=== PATIENT | female | born 1935 | race Caucasian/White ===

== ENCOUNTER 2017-05-15 09:24 | Inpatient (IN) | payer MEDICARE, OTHER ==
[~2017-05-15] VITALS: Ht 157.5 cm; Wt 107.0 kg
[~2017-05-15 09:24] MED LIST: ACETAMINOPHEN-1 EAC1 PO; ALLOPURINOL 10100 M1 PO; ASPIR 8181 M1 PO; BACTRIM DS TAB1 EACH PO; CARVEDILOL12.5 MG PO; COLCHICINE 0.60.6 M1 OR; COREG3.125 MG PO; IBUPROFEN; IBUPROFEN 200200 M1 PO; MEDROLDOSEPACK PO; MINIPRIN81 MG OR; MINOCIN100 MG PO; NORVASC10 MG OR; NORVASC5 MG PO; PHENAZOPYRIDIN200 M2 PO; PREDNISONE 20 M20 M1 PO; PROTONIX40 M1 PO; RYTHMOL 150MG150 M1 OR; TOPROL XL25 MG PO; XARELTO15 MG PO
[2017-05-15 09:45] VITALS: BP 178/105
[2017-05-15 09:48] LABS: URINE BILIRUBIN NEGATIVE (Negative); URINE BLOOD 3+ (Negative); URINE CLARITY SL CLOUDY; URINE COLOR STRAW; URINE GLUCOSE-RANDOM NEGATIVE (Negative); URINE KETONES NEGATIVE (Negative); URINE LEUKOCYTES-REFLEX 1+ (Negative); URINE NITRITE-REFLEX NEGATIVE (Negative); URINE PROTEIN 3+ (Negative); URINE SPECIFIC GRAVITY 1.025 (1.005-1.030); URINE UROBILINOGEN 0.2 E.U./dl (0.2-1.0)
[2017-05-15 09:54] LABS: BACTERIA-REFLEX 1-9 Few /HPF (None Seen); CASTS None Seen /LPF (None Seen); CRYSTALS None Seen /LPF (None Seen); MUCUS 0-3 Light strn/LPF (None Seen); SQUAMOUS 0-3 Few /LPF (0-3); URINE RBC >20 Many /HPF (0-2); URINE WBC-REFLEX 6-15 Few /HPF (0-5)
[2017-05-15 10:10] LABS: ABSOLUTE BASOPHILS 0.1 thou/uL (0.0-0.2); ABSOLUTE EOSINOPHILS 0.2 thou/uL (0.0-0.7); ABSOLUTE LYMPHOCYTES 1.1 thou/uL (0.8-5.3); ABSOLUTE MONOCYTES 0.8 thou/uL (0.0-1.2); ABSOLUTE NEUTROPHILS 6.4 thou/uL (1.6-8.1); BASOPHILS 0.8 %; HEMATOCRIT 40.5 % (37.0-47.0); HEMOGLOBIN 13.1 gm/dL (12.0-15.0); LYMPHOCYTES 12.8 %; MCH 29.3 pg (26.0-34.0); MCHC 32.4 g/dL (28.0-37.0); MCV 90.4 fL (80.0-100.0); MONOCYTES 9.8 %; MPV 7.9 fl. (7.2-11.1); NUCLEATED RBCS 0 /100WBC; PLATELET COUNT* 209 thou/uL (150-400); POLYS 74.6 %; RBC 4.47 mil/uL (4.20-5.00); RDW-CV 15.6 % (10.5-14.5); WBC 8.5 thou/uL (4.0-11.0)
[2017-05-15 10:19] LABS: APTT 27.3 Seconds (25.0-31.3); INR 1.1; PROTIME 10.7 Seconds (9.20-11.50)
[2017-05-15 10:23] LABS: ANION GAP 9 mmol/L (7-16); BUN 28 mg/dL (7-18); CALCIUM 8.3 mg/dL (8.5-10.1); CHLORIDE 108 mmol/L (98-107); CO2 23 mmol/L (21-32); CREATININE 1.4 mg/dL (0.6-1.3); GLUCOSE 124 mg/dL (70-99); POTASSIUM 4.9 mmol/L (3.5-5.1); SODIUM 140 mmol/L (136-145)
[2017-05-15 10:34] LABS: ALBUMIN 3.2 g/dL (3.4-5.0); ALKALINE PHOSPHATASE 144 U/L (46-116); NT-PRO BRAIN NAT PEPTIDE 4256 pg/mL (<300); SGOT 23 U/L (15-37); SGPT 17 U/L (30-65); TOTAL BILIRUBIN 0.6 mg/dL (<0.1-1.0); TOTAL PROTEIN 6.7 g/dL (6.4-8.2); TROPONIN-I LEVEL <0.06 ng/mL (<0.06)
[2017-05-15 11:37] VITALS: BP 161/82
[2017-05-15 11:50] VITALS: BP 156/90
[2017-05-15 16:00] VITALS: BP 162/89
--- NOTE | 2017-05-15 17:04 | EKG ---
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 BENTLEY : 1935 Requested By: Sunil Larios Order Number: [id number] MD: Benny Clemens Measurements Intervals [place] Rate: 89 P: [place]: QRS: 44 QRSD: 111 T: 54 QT: 378 QTc: 460 Interpretive Statements Atrial fibrillation Anteroseptal infarct, age indeterminate, possible Compared to ECG 03/01/2016 20:39:59 No significant changes Electronically Signed On 05-15-2017 17:03:51 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
--- NOTE | 2017-05-15 18:10 | NUR ---
PATIENT ADM ON UNIT TODAY, ARRIVED AT 1150. COLLIN REPORT FROM MERLYN IN ER, AGREE WITH ASSESSMENT. PATIENT IS A&OX4, ROOM AIR, IV LEFT HAND FLUIDS RUNNING. UP WITH ASSISTX1 WITH WALKER, WEAK AND UNSTEADY GIAT. NO C/O PAIN AT THIS TIME. REPORT BURNING AND PAINFUL URINATION. BLADDER SCANNED HER, 126 ML NOTED. NO OTHER CONCERNS AT THIS TIME. APPROPRIATE AND COOPORATIVE WITH CARE.
[2017-05-15 23:36] VITALS: BP 108/53
[2017-05-16 04:00] LABS: ABSOLUTE EOSINOPHILS 0.2 thou/uL (0.0-0.7); ABSOLUTE LYMPHOCYTES 1.4 thou/uL (0.8-5.3); ABSOLUTE MONOCYTES 0.7 thou/uL (0.0-1.2); ABSOLUTE NEUTROPHILS 3.7 thou/uL (1.6-8.1); BASOPHILS 0.5 %; EOSINOPHILS 3.5 %; HEMATOCRIT 33.9 % (37.0-47.0); LYMPHOCYTES 23.1 %; MCH 29.7 pg (26.0-34.0); MCHC 32.6 g/dL (28.0-37.0); MONOCYTES 11.9 %; NUCLEATED RBCS 0 /100WBC; PLATELET COUNT* 182 thou/uL (150-400); RBC 3.73 mil/uL (4.20-5.00); WBC 6.1 thou/uL (4.0-11.0)
[2017-05-16 04:03] LABS: CALCIUM 7.6 mg/dL (8.5-10.1); CREATININE 1.4 mg/dL (0.6-1.3); HEMOGLOBIN 11.1 gm/dL (12.0-15.0); MAGNESIUM 2.2 mg/dL (1.8-2.4); POTASSIUM 4.1 mmol/L (3.5-5.1)
--- NOTE | 2017-05-16 06:44 | NUR ---
PATIENT SLEPT WELL DURING THIS SHIFT. PT USES CALL LIGHT APPROPRIATELY FOR ASSISTANCE TO BSC. PT ABLE TO PIVOT TO BSC WITH STANDBY. PT WITH EDEMA IN LOWER EXTREMITIES. PT WITH FLUIDS INFUSING PER DR ORDER. PT ON ROOM AIR. PT REFUSING PAIN/NAUSEA ON THIS SHIFT. FREQUENTLY USED ITEMS AND CALL LIGHT WITHIN REACH. SIDERAILS UPX2 AND BED ALARM ON. WILL CONTINUE TO MONITOR.
[2017-05-16 07:40] VITALS: BP 127/65
--- NOTE | 2017-05-16 11:33 | NUR ---
Nutrition: Consult received for "other." Pt has a BMI of 43.2. Usual wt is ~230#. She stated she tries to lose wt, but it is difficult. She wants to get down to 200#. She stated she is "pre-diabetic." We discussed how wt loss can help improve blood sugar. Pt understands. Handouts provided to her on plate method, wt loss tips, meal prep. All questions answered. Good appetite on Regular diet. Low to mild nutrition risk at this time.
[2017-05-16 16:23] VITALS: BP 151/79
[2017-05-16 19:35] VITALS: BP 146/82
--- NOTE | 2017-05-17 05:43 | NUR ---
ASSESSMENT COMPLETE. PT SLEPT MOST OF THE NIGHT WITHOUT ANY CONCERNS. PT UP TO BSC COMMODE MULTIPLE TIME. PT IS X1 ASSIST. PT DENIES NEED FOR PAIN MEDS. PT DENIES N/V. PT HAS [place] SATS ON ROOM AIR. PT HAS SOME STRESS INCONTINENCE, BRIEF IN PLACE. PT HAS IV FLUIDS INFUSING IN LEFT HAND. PT TURNS SELF IN BED. SEE ASSESSMENT AND VITALS FOR OTHER DETAILS. BED ALARM ON, CALL LIGHT WITHIN REACH. WILL CONTINUE TO MONITOR
[2017-05-17 10:28] VITALS: BP 172/94
[2017-05-17] MEDS ORDERED: AUGMENTIN 875-1 EACH PO (10:40)
[2017-05-17 10:44] VITALS: BP 172/94
--- NOTE | 2017-05-17 14:49 | NUR ---
SW met with pt to complete initial assessment and introduce self and SW role. Pt going home today and expressed no dc needs. Pt lives at home with her son and granddaughter who are supportive. Pt denies and HH needs and feels comfortable and confident with dc home today. Pt has a RW, wc, shower seat and hx of [facility], [facility].
--- NOTE | 2017-05-17 15:13 | NUR ---
PATIENT IS ALERT AND ORIENTED TODAY, VERY PLEASANT. NO COMPLAINTS OF PAIN TODAY. IV ANTIBIOTICS GIVEN. PATIENT HAS SOME STRESS INCONTINENCE. UP WITH WALKER TO RESTROOM. DISCHARGE INSTRUCTIONS GIVEN, PRESCRIPTION GIVEN, APPOINTMENT GIVEN FOR UROLOGY AND QUESTIONS ANSWERED FOR PATIENT AND FAMILY. PATIENT LEFT VIA WHEELCHAIR TO HOME.
[2017-05-17 15:21] VITALS: BP 172/94
== END 2017-05-17 15:10 | disposition home or self-care (01) | DRG 683 ==
LOC: M.ERS 09:24 → M.3W 10:40 → M.TBA-ER 10:40 → M.3W 12:01
PROVIDERS: Family Medicine; ADMIT Internal Medicine
DX: N17.9 Acute kidney failure, unspecified (principal); R65.10 Systemic inflammatory response syndrome (SIRS) of non-infectious origin without acute organ dysfunction; N30.90 Cystitis, unspecified without hematuria; I10 Essential (primary) hypertension; E78.00 Pure hypercholesterolemia, unspecified; Z96.642 Presence of left artificial hip joint; Z96.653 Presence of artificial knee joint, bilateral; N81.10 Cystocele, unspecified; M10.9 Gout, unspecified; Z79.899 Other long term (current) drug therapy; Z86.73 Personal history of transient ischemic attack (TIA), and cerebral infarction without residual deficits; Z90.49 Acquired absence of other specified parts of digestive tract; Z90.710 Acquired absence of both cervix and uterus; Z88.8 Allergy status to other drugs, medicaments and biological substances; Z23 Encounter for immunization

== ENCOUNTER 2018-01-03 16:20 | Inpatient (IN) | payer MEDICARE, OTHER ==
[~2018-01-03] VITALS: Ht 172.7 cm; Wt 106.0 kg
[~2018-01-03 16:20] MED LIST changes: +AUGMENTIN 875-1 EACH PO
[2018-01-03 16:23] VITALS: BP 183/96
[2018-01-03] MEDS ORDERED: CRANBERRY200 MG PO (16:25)
[2018-01-03 17:28] LABS: BE -0.4 mmol/L (-2 to +3); HCO3 24.5 mmol/L (22.0-26.0); PCO2 41.3 mmHg (35.0-45.0); PO2 84.5 mmHg (75.0-100.0); pH 7.391 (7.340-7.450)
[2018-01-03 17:31] LABS: ABSOLUTE BASOPHILS 0.1 thou/uL (0.0-0.2); ABSOLUTE EOSINOPHILS 0.2 thou/uL (0.0-0.7); ABSOLUTE LYMPHOCYTES 1.4 thou/uL (0.8-5.3); ABSOLUTE MONOCYTES 0.5 thou/uL (0.0-1.2); ABSOLUTE NEUTROPHILS 3.7 thou/uL (1.6-8.1); EOSINOPHILS 3.5 %; LYMPHOCYTES 23.5 %; MCH 29.2 pg (26.0-34.0); MCHC 32.5 g/dL (28.0-37.0); MCV 89.7 fL (80.0-100.0); MONOCYTES 8.7 %; MPV 8.8 fl. (7.2-11.1); NUCLEATED RBCS 0 /100WBC; PLATELET COUNT* 193 thou/uL (150-400); POLYS 63.3 %; RBC 4.46 mil/uL (4.20-5.00); RDW-CV 15.5 % (10.5-14.5); WBC 5.9 thou/uL (4.0-11.0)
[2018-01-03 17:37] LABS: ANION GAP 7 mmol/L (7-16); BUN 20 mg/dL (7-18); CALCIUM 7.8 mg/dL (8.5-10.1); CHLORIDE 106 mmol/L (98-107); CO2 26 mmol/L (21-32); CREATININE 1.5 mg/dL (0.6-1.3); GLUCOSE 126 mg/dL (70-99); POTASSIUM 4.3 mmol/L (3.5-5.1); SODIUM 139 mmol/L (136-145)
[2018-01-03 17:42] LABS: ALBUMIN 3.2 g/dL (3.4-5.0); ALKALINE PHOSPHATASE 150 U/L (46-116); SGOT 21 U/L (15-37); SGPT 21 U/L (30-65); TOTAL BILIRUBIN 0.5 mg/dL (<0.1-1.0); TOTAL PROTEIN 7.5 g/dL (6.4-8.2); TROPONIN-I LEVEL <0.06 ng/mL (<0.06)
[2018-01-03 17:56] LABS: URINE BILIRUBIN NEGATIVE (Negative); URINE BLOOD 1+ (Negative); URINE CLARITY CLEAR; URINE COLOR YELLOW; URINE GLUCOSE-RANDOM NEGATIVE (Negative); URINE KETONES NEGATIVE (Negative); URINE NITRITE-REFLEX NEGATIVE (Negative); URINE PROTEIN NEGATIVE (Negative); URINE UROBILINOGEN 0.2 E.U./dl (0.2-1.0)
[2018-01-03 17:58] LABS: URINE LEUKOCYTES-REFLEX 3+ (Negative)
[2018-01-03 18:08] LABS: MUCUS None Seen strn/LPF (None Seen); SQUAMOUS >10 Many /LPF (0-3)
[2018-01-03 18:09] LABS: BACTERIA-REFLEX 1-9 Few /HPF (None Seen); CASTS None Seen /LPF (None Seen); URINE WBC-REFLEX >25 Many /HPF (0-5)
[2018-01-03 18:10] LABS: CRYSTALS None Seen /LPF (None Seen); URINE RBC 0-2 Rare /HPF (0-2); WBC CLUMPS Few (None Seen)
--- NOTE | 2018-01-03 18:25 | NUR ---
BACK FROM CT AT THIS TIME
[2018-01-03 20:25] VITALS: BP 191/97
[2018-01-03 20:54] VITALS: BP 186/90
[2018-01-04] VITALS: BP 135/66
--- NOTE | 2018-01-04 03:03 | NUR ---
ASSUMED CARE OF PT AT 2030 FROM THE ER. PT IS ALERT AND ORIENTED. VSS. PERRLA. NO COMPLAINTS OF PAIN. PT IS IN A FIB ON THE TELEMETRY. PT IS RESTING COMFORTABLY IN BED. RESPIRATIONS ARE EVEN AND NONLABORED. WILL CONTINUE TO MONITOR PT.
[2018-01-04 04:00] VITALS: BP 144/70
[2018-01-04 08:31] VITALS: BP 171/92
--- NOTE | 2018-01-04 10:45 | EKG ---
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 : 1935 Requested By: Kyra Harmon Order Number: [id number] MD: Sylvester Sim Measurements Intervals [place] Rate: 60 P: 0 UT: 141 QRS: 52 QRSD: 105 T: 82 QT: 438 QTc: 438 Interpretive Statements atrial fibrillation Anteroseptal infarct, age indeterminate Baseline wander in lead(s) III Compared to ECG 05/15/2017 09:54:17 rate slowed Electronically Signed On 01-04-2018 10:44:47 CDT by Sylvester Sim [email or web address] <ELECTRONICALLY SIGNED> By: Sylvester Sim MD, [facility] 01/04/18 1044 1745 1745 Sylvester Sim MD, [facility] /EPI
[2018-01-04 12:02] VITALS: BP 184/77
--- NOTE | 2018-01-04 12:33 | NUR ---
MET WITH PT TO DISCUSS HOME SITUATION/DC PLANNING. PT LIVES WITH HER SON WHO IS DISABLED AND HER ADULT GRANDDTR. GRANDDTR ASSISTS WITH HOUSEHOLD DUTIES AND TRANSPORTATION. PT IS INDEPENDENT WITH HER ADLS, IS ABLE TO COOK AND CLEAN SOME. USES WALKER, W/C AND BATH BENCH. SHE HAS HAD HH WITH [facility] IN PAST. SHE DOESN'T THINK SHE NEEDS HH AGAIN. CM TO FOLLOW
[2018-01-04 16:07] VITALS: BP 152/72
--- NOTE | 2018-01-04 17:56 | NUR ---
PT CARE ASSUMED AFTER REPORT. ASSESSMENT COMPLETE. AFIB/AFLUTTER ON MONITOR. DENIES PAIN. PT UP TO URINATE FREQUENTLY. INCONT AT TIMES WITH URGENCY. NIH Q4H. SCORES 0. FALL PRECAUTIONS IN PLACE INCLUDING BED ALARM. PROGRESSING TOWARDS GOALS.
[2018-01-04 19:30] VITALS: BP 170/90
--- NOTE | 2018-01-05 00:08 | NUR ---
ASSUMED CARE OF PT AT 1900. PT IS ALERT AND ORIENTED. VSS. PERRLA. NO COMPLAINTS OF PAIN. NIH IS 0. PT IS IN A FIB ON THE TELEMETRY. PT IS RESTING COMFORTABLY IN BED. RESPIRATIONS ARE EVEN AND NONLABORED. WILL CONTINUE TO MONITOR PT.
[2018-01-05 04:00] VITALS: BP 146/82
[2018-01-05 05:40] LABS: HEMATOCRIT 38.4 % (37.0-47.0); HEMOGLOBIN 12.4 gm/dL (12.0-15.0); MCH 28.9 pg (26.0-34.0); MCHC 32.3 g/dL (28.0-37.0); MCV 89.5 fL (80.0-100.0); MPV 8.5 fl. (7.2-11.1); RBC 4.29 mil/uL (4.20-5.00); RDW-CV 15.6 % (10.5-14.5); WBC 6.5 thou/uL (4.0-11.0)
[2018-01-05 05:46] LABS: CALCIUM 8.5 mg/dL (8.5-10.1); CREATININE 1.5 mg/dL (0.6-1.3); MAGNESIUM 2.1 mg/dL (1.8-2.4); POTASSIUM 4.1 mmol/L (3.5-5.1)
[2018-01-05 08:00] VITALS: BP 163/88
--- NOTE | 2018-01-05 09:00 | NUR ---
VSS, ASSUMED CARE IN THE AM,ASSESSMENT PERFORMED AND CHARTED, FALL PRECAUTIONS IN PLACE AND CALL LIGHT IN REACH, PT IS A&O4 AND UP WITH ONE AND WALKER, PT IS ON RA AND IS MED-SURG STATUS, PT DENIES ANY PAIN AND HE GOAL IS TO SIT UP IN CHAIR AND IMPROVE BREATHING, WILL FOLLOW WITH PLAN OF CARE,
[2018-01-05 17:30] VITALS: BP 157/85
--- NOTE | 2018-01-05 18:27 | NUR ---
ASSUMED CARE OF PATIENT AT 1730. REPORT RECEIVED FROM TASIA. PATIENT DENIES ANY PAIN. PATIENT IS RESTING IN BED. PATIENT DENIES ANY NEEDS AT THIS TIME. CALL LIGHT WITHIN REACH. WILL CONTINUE TO MONITOR.
[2018-01-06] VITALS: BP 131/90
--- NOTE | 2018-01-06 07:44 | NUR ---
PATIENT SLEPT MOST OF THE NIGHT. IV REMAINS SALINE LOCKED. PATIENT HAD NO COMPLAINTS OF PAIN. WILL CONTINUE TO MONITOR.
[2018-01-06 07:55] VITALS: BP 152/79
--- NOTE | 2018-01-06 16:59 | NUR ---
PATIENT A&OX4, ROOM AIR, IV RIGHT FOREARM SALINE LOCK. UP WITH ASSISTX1 WITH WALKER AND GIATBELT. NO C/O PAIN/N/V. PROLAPSED CERVIX NOTED, PATIENT STATES SHE HAS AN OUTPATIENT APT SCHEDULED. STRESS INCONTNENCE, ABLE TO CALL OUT APPROPRIATELY. NO OTHER CONCERNS AT THIS TIME. APPROPRIATE AND COOPORATIVE WITH CARE.
[2018-01-06 17:45] VITALS: BP 151/61
[2018-01-06 20:00] VITALS: BP 174/77
--- NOTE | 2018-01-07 05:56 | NUR ---
ASSUMED PT CARE AT 1930. PT ALERT AND ORIENTED X4, POLITE AND COOPERATIVE WITH CARES. PT WEARS BRIEFS FOR STRESS INCONTINENCE. SL TO RIGHT FOREARM. UP WITH ONE, GAIT BELT AND WALKER. FALL PRECAUTIONS IN PLACE. LOOSE/LIQUID STOOL X5 THIS SHIFT. NO C/O PAIN. USES CALL LIGHT APPROPRIATELY. CALL LIGHT AND FREQUENTLY USED ITEMS WITHIN REACH. HOURLY ROUNDING IN PROGRESS, WILL CONTINUE TO MONITOR.
[2018-01-07 08:00] VITALS: BP 158/88
[2018-01-07 09:06] VITALS: BP 158/88
[2018-01-07] MEDS ORDERED: LEVAQUIN 500 M500 M1 PO (10:04)
[2018-01-07] MEDS ORDERED: LISINOPRIL20 MG PO (10:04)
--- NOTE | 2018-01-07 10:44 | NUR ---
AM ASSESSMENT AND VITAL SIGNS COMPLETED DOCUMENTED. PT STATES SHE IS FEELING BETTER BUT STILL HAS GENERALIZED ACHES AND PAINS FROM ARTHRITIS. PT DECLINES PAIN MEDICATION AT THIS TIME. DISCHARGE ORDERS HAVE BEEN REC'D AND PT WILL BE GOING TO A SNF LATER TODAY.
--- NOTE | 2018-01-07 11:33 | NUR ---
CM SPOKE TO THE PATIENT TO DISCUSS DISCHARGE PLANNING NEEDS AND SKILLED AT D/C. PATIENT REQUEST SKILLED AT [facility]. SATYA SPOKE TO BERONICA WITH [facility] ADMISSSIONS TO INFORM OF THE REFERRAL FOR SKILLED AND FAXED PATIENTS CLINICAL INFO. BERONICA INFORMS THAT MEGHAN WILL COME TO THE HOSPITAL TO DO AN ON-SITE ASSESSMENT. CM WILL REMAIN AVAILABLE TO ASSIST AND FOLLOW NEEDED.
--- NOTE | 2018-01-07 13:03 | NUR ---
REPORT CALL[facility] TO [facility]. PT WILL BE PICKED UP AT 1400.
--- NOTE | 2018-01-07 15:09 | NUR ---
PT'S FAMILY HERE, TRANSPORTATION FROM [facility] HAS BEEN DELAYED SO FAMILY HAS DECIDED TO TAKE HER IN THEIR CAR. PT AND BELONGINGS ACCOMPANIED TO THE EXIT, DISCHARGED IN STABLE CONDITION.
[2018-01-08] MEDS ORDERED: DULCOLAX10 MG RECTAL (04:44)
[2018-01-08] MEDS ORDERED: MILK OF MA400 MG/5 M PO (04:45)
[2018-01-08] MEDS ORDERED: TYLENOL325 MG PO (04:46)
--- NOTE | 2018-01-08 11:09 | EKG ---
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: [place] : 1935 Requested By: Drea Bean Order Number: [id number] MD: Joel Shaffer Measurements Intervals [place] Rate: 98 P: [place]: QRS: 82 QRSD: 100 T: 144 QT: 451 QTc: 577 Interpretive Statements Atrial fibrillation Anteroseptal infarct, age indeterminate Prolonged QT interval Baseline wander in lead(s) II,aVR Compared to ECG 01/03/2018 17:45:48 Prolonged QT interval now present Myocardial infarct finding still present Electronically Signed On 01-08-2018 11:09:30 CDT by Joel Shaffer [email or web address] <ELECTRONICALLY SIGNED> By: Joel Shaffer MD, FACC 01/08/18 1109 0446 0446 Joel Shaffer MD, [facility] /EPI
== END 2018-01-07 15:13 | DRG 177 ==
LOC: M.ERS 16:20 → M.2W 18:51 → M.TBA-ER 18:51 → M.2W 19:46 → M.3W 01-05 17:50
PROVIDERS: Personal Emergency Response Attendant; ADMIT Internal Medicine
DX: J15.6 Pneumonia due to other Gram-negative bacteria (principal); G92 Toxic encephalopathy; N39.0 Urinary tract infection, site not specified; E78.00 Pure hypercholesterolemia, unspecified; Z96.653 Presence of artificial knee joint, bilateral; N18.3 Chronic kidney disease, stage 3 (moderate); I12.9 Hypertensive chronic kidney disease with stage 1 through stage 4 chronic kidney disease, or unspecified chronic kidney disease; M19.90 Unspecified osteoarthritis, unspecified site; Z96.643 Presence of artificial hip joint, bilateral; M10.9 Gout, unspecified; Z86.73 Personal history of transient ischemic attack (TIA), and cerebral infarction without residual deficits; Z90.49 Acquired absence of other specified parts of digestive tract; Z90.710 Acquired absence of both cervix and uterus; Z79.899 Other long term (current) drug therapy; Z88.8 Allergy status to other drugs, medicaments and biological substances

== ENCOUNTER 2018-01-08 04:40 | Emergency (ER) | payer MEDICARE, OTHER ==
[~2018-01-08] VITALS: Ht 172.7 cm; Wt 107.5 kg
[~2018-01-08 04:40] MED LIST changes: +CRANBERRY200 MG PO; +LEVAQUIN 500 M500 M1 PO; +LISINOPRIL20 MG PO
[2018-01-08] MEDS ORDERED: DULCOLAX10 MG RECTAL (04:44)
[2018-01-08] MEDS ORDERED: MILK OF MA400 MG/5 M PO (04:45)
[2018-01-08] MEDS ORDERED: TYLENOL325 MG PO (04:46)
[2018-01-08 05:03] LABS: ABSOLUTE BASOPHILS 0.1 thou/uL (0.0-0.2); ABSOLUTE LYMPHOCYTES 1.2 thou/uL (0.8-5.3); ABSOLUTE MONOCYTES 1.2 thou/uL (0.0-1.2); ABSOLUTE NEUTROPHILS 8.2 thou/uL (1.6-8.1); BASOPHILS 0.7 %; EOSINOPHILS 0.3 %; HEMATOCRIT 39.9 % (37.0-47.0); LYMPHOCYTES 11.4 %; MCH 29.2 pg (26.0-34.0); MCHC 32.7 g/dL (28.0-37.0); MCV 89.2 fL (80.0-100.0); MPV 8.1 fl. (7.2-11.1); NUCLEATED RBCS 0 /100WBC; PLATELET COUNT* 187 thou/uL (150-400); POLYS 76.6 %; RBC 4.47 mil/uL (4.20-5.00); RDW-CV 15.1 % (10.5-14.5); WBC 10.7 thou/uL (4.0-11.0)
[2018-01-08 05:28] LABS: URINE BILIRUBIN NEGATIVE (Negative); URINE BLOOD 2+ (Negative); URINE CLARITY CLEAR; URINE COLOR YELLOW; URINE GLUCOSE-RANDOM NEGATIVE (Negative); URINE KETONES NEGATIVE (Negative); URINE LEUKOCYTES-REFLEX 1+ (Negative); URINE NITRITE-REFLEX NEGATIVE (Negative); URINE PROTEIN 1+ (Negative); URINE UROBILINOGEN 0.2 E.U./dl (0.2-1.0)
[2018-01-08 05:31] LABS: ANION GAP 8 mmol/L (7-16); BUN 27 mg/dL (7-18); CALCIUM 8.4 mg/dL (8.5-10.1); CHLORIDE 103 mmol/L (98-107); CO2 26 mmol/L (21-32); CREATININE 1.7 mg/dL (0.6-1.3); GLUCOSE 126 mg/dL (70-99); POTASSIUM 4.4 mmol/L (3.5-5.1); SODIUM 137 mmol/L (136-145)
[2018-01-08 05:36] LABS: ALBUMIN 2.7 g/dL (3.4-5.0); ALKALINE PHOSPHATASE 106 U/L (46-116); NT-PRO BRAIN NAT PEPTIDE 3118 pg/mL (<300); SGOT 15 U/L (15-37); SGPT 16 U/L (30-65); TOTAL BILIRUBIN 1.4 mg/dL (<0.1-1.0); TOTAL PROTEIN 7.4 g/dL (6.4-8.2); TROPONIN-I LEVEL <0.06 ng/mL (<0.06)
[2018-01-08 05:43] LABS: BACTERIA-REFLEX 1-9 Few /HPF (None Seen); CASTS None Seen /LPF (None Seen); CRYSTALS None Seen /LPF (None Seen); MUCUS 0-3 Light strn/LPF (None Seen); SQUAMOUS 0-3 Few /LPF (0-3); URINE RBC 3-10 Few /HPF (0-2); URINE WBC-REFLEX 6-15 Few /HPF (0-5)
[2018-01-08 07:07] VITALS: BP 131/70
== END 2018-01-08 07:07 | disposition home or self-care (01) ==
LOC: M.ERS 04:40
PROVIDERS: Emergency Medicine
DX: R06.00 Dyspnea, unspecified (principal); I10 Essential (primary) hypertension; E78.00 Pure hypercholesterolemia, unspecified; M10.9 Gout, unspecified; Z90.49 Acquired absence of other specified parts of digestive tract; Z90.710 Acquired absence of both cervix and uterus; Z96.642 Presence of left artificial hip joint; Z96.653 Presence of artificial knee joint, bilateral; Z88.8 Allergy status to other drugs, medicaments and biological substances